=== PATIENT | female | born 1980 | race Caucasian/White ===

== ENCOUNTER 2017-07-31 22:10 | Emergency (ER) | payer BC ==
[~2017-07-31] VITALS: Ht 172.7 cm; Wt 59.4 kg
[2017-07-31] MEDS ORDERED: LEXAPRO10 MG ORAL (22:16)
--- NOTE | 2017-07-31 22:21 | Emergency Room Report ---
History of Present Illness General Chief Complaint: Vomiting Source: Patient Present Illness HPI This is a 37-year-old female with no past medical history. She did have previous appendectomy. She presents with chief complaint of nausea and vomiting. Onset this afternoon after lunch. Unable to keep anything down. No fever or chills. Zofran did help a little bit. Similar symptom 2 weeks ago she was seen in an outside hospital. No diarrhea. Labs are unremarkable then. No CT scan done. History of alcohol use over 24 hours ago. She said she only had 2 drinks. Allergies: Coded Allergies: PENICILLINS (Verified Allergy, Unknown, 07/31/17) Patient History Past Medical History: see triage record, old chart reviewed Past Surgical History: appy Pertinent Family History: none Social History: Reports: alcohol use - Social Last Menstrual Period: 3 weeks ago Now: No Immunizations: other Reviewed Nursing Documentation: PMH: Agreed; PSxH: Agreed Nursing Documentation-PMH History Of Psychiatric Problem: Yes - DEPRESSION Review of Systems Eye: Denies: eye pain, blurred vision ENT: Denies: ear pain, nose congestion, throat swelling Respiratory: Denies: cough, shortness of breath Cardiovascular: Denies: chest pain, palpitations Gastrointestinal: Reports: nausea, vomiting; Denies: abdominal pain, diarrhea Musculoskeletal: Denies: back pain, joint pain Skin: Denies: rash Neurological: Denies: headache, numbness Endocrine: Denies: increased thirst, increased urine Hematologic/Lymphatic: Denies: easy bruising All Other Systems: negative except mentioned in HPI Physical Exam Vital Signs Date Time Temp Pulse Resp B/P (MAP) Pulse Ox O2 Delivery O2 Flow Rate FiO2 07/31/17 22:11 97.5 78 16 137/85 98 Room Air 97.5 vitals normal Sp02 EP Interpretation: reviewed, normal General Appearance: well appearing, no apparent distress, alert Head: normocephalic, atraumatic Eyes: bilateral eye PERRL, bilateral eye EOMI ENT: hearing grossly normal, normal pharynx Neck: full range of motion, supple, no meningismus Respiratory: chest non-tender, lungs clear, normal breath sounds Cardiovascular #1: regular rate, rhythm, no murmur Gastrointestinal: non tender, no mass, no organomegaly, no bruit, non-distended , abnormal bowel sounds - Increased Musculoskeletal: back normal, gait/station normal, normal range of motion Neurologic: alert, oriented x3 Psychiatric: mood/affect normal Skin: warm/dry Medical Decision Making Diagnostic Impression: Primary Impression: Vomiting Qualified Codes: R11.2 - Nausea with vomiting, unspecified ER Course Patient with vomiting. No evidence of any obstruction. No evidence of acute abdomen. She felt better after IV fluid and Zofran and Reglan. Now tolerating liquids. We'll discharge home. Lab Results Impression labs unremarkable CT/MRI/US Diagnostic Results CT/MRI/US Diagnostic Results : Imaging Test Ordered: CT abdomen and pelvis Impression negative per radiologist Last Vital Signs Date Time Temp Pulse Resp B/P (MAP) Pulse Ox O2 Delivery O2 Flow Rate FiO2 07/31/17 22:11 97.5 78 16 137/85 98 Room Air 97.5 Status: improved Disposition: HOME, SELF-CARE Condition: Stable Scripts Promethazine Hcl (PROMETHAZINE HCL) 25 Mg Supp.rect 25 MG RC Q6HR, #10 SUPP Prov: SEBASTIAN ESCOBAR M.D. 08/01/17 Ondansetron Odt* (ZOFRAN ODT*) 8 Mg Tab.rapdis 4 MG ORAL Q6H PRN for Nausea & Vomiting, #10 TAB Prov: SEBASTIAN ESCOBAR M.D. 08/01/17 Patient Instructions: Nausea and Vomiting, Adult Additional Instructions: Follow-up with your DrYandy in 2-3 days. You will need a referral to see a guide domestic tour. Return if worse. SEBASTIAN ESCOBAR M.D. Jul 31, 2017 22:21
[2017-07-31 22:30] VITALS: BP 128/81
[2017-07-31 22:54] LABS: APPEARANCE,URINE CLEAR; BILIRUBIN, URINE NEGATIVE (NEGATIVE); COLOR,URINE PALE YELLOW; GLUCOSE, URINE (UA) NEGATIVE (NEGATIVE); KETONES,URINE 3+ (NEGATIVE); LEUKOCYTE ESTERASE ,URINE 1+ (NEGATIVE); NITRITE,URINE NEGATIVE (NEGATIVE); PH,URINE 8 (4.5-8.0); PROTEIN,URINE NEGATIVE (NEGATIVE); UROBILINOGEN,URINE NORMAL MG/DL (0.0-1.0)
[2017-07-31 23:00] LABS: BASOPHILS % (AUTO) 1.2 % (0.0-2.0); EOSINOPHILS % (AUTO) 0.3 % (0.0-3.0); HEMATOCRIT 44.3 % (37.0-47.0); HEMOGLOBIN 15.1 G/DL (12.0-16.0); LYMPHOCYTES % (AUTO) 12.3 % (20.0-45.0); MEAN CORPUSCULAR VOLUME 101 FL (80-99); MONOCYTES % (AUTO) 8.2 % (1.0-10.0); PLATELET COUNT 169 K/UL (150-450); RED BLOOD COUNT 4.38 M/UL (4.20-5.40); RED CELL DISTRIBUTION WIDTH 11.2 % (11.6-14.8); WHITE BLOOD COUNT 5.3 K/UL (4.8-10.8)
[2017-07-31 23:04] LABS: ANION GAP 13 mmol/L (5-15); BLOOD UREA NITROGEN 6 mg/dL (7-18); CALCIUM 7.2 MG/DL (8.5-10.1); CARBON DIOXIDE 23 MMOL/L (21-32); CHLORIDE 104 MMOL/L (98-107); CREATININE 0.8 MG/DL (0.55-1.30); POTASSIUM 3.8 MMOL/L (3.5-5.1); SODIUM 140 MMOL/L (136-145)
[2017-07-31 23:11] LABS: ALANINE AMINOTRANSFERASE 51 U/L (12-78); ALBUMIN 3.8 G/DL (3.4-5.0); ALBUMIN/GLOBULIN RATIO 1.2 (1.0-2.7); ALKALINE PHOSPHATASE 58 U/L (46-116); ASPARTATE AMINO TRANSFERASE 64 U/L (15-37); BILIRUBIN,TOTAL 0.9 MG/DL (0.2-1.0)
[2017-07-31 23:30] VITALS: BP 118/81
[2017-07-31] MEDS ORDERED: Metoclopramide 10mg/2ml Inj IVP ONE (23:45)
[2017-08-01 00:30] VITALS: BP 118/80
[2017-08-01] MEDS ORDERED: ZOFRAN ODT8 MG ORAL (01:28)
[2017-08-01] MEDS ORDERED: PROMETHAZINE HC25 MG RC (01:28)
[2017-08-01 01:30] VITALS: BP 122/78
[2017-08-01 01:45] VITALS: BP 122/78
--- NOTE | 2017-08-01 12:37 | Diagnostic Imaging Report ---
Indication: Abdominal pain for 3 days Technique: Spiral acquisitions obtained through the abdomen and pelvis. No oral contrast utilized, per emergency room physician request No IV contrast utilized, per emergency room physician request.. Multiplanar reconstructions were generated. Total dose length product 520.88 mGycm. CTDIvol(s) 11.22 mGy. Dose reduction achieved using automated exposure control Comparison: None Findings: There are bilateral breast implants Kylie at the end of the cecum likely indicate prior appendectomy. The appendix is not visualized. No evidence of diverticulosis or diverticulitis. No free or loculated intraperitoneal air or fluid is evident. No small bowel distention. The distal esophagus, stomach, duodenum are unremarkable. Lack of IV contrast limits assessment of the solid organs. The liver demonstrates multiple low-attenuation lesions. The largest is in the medial aspect of segment IVb, measures 4 x 1.6 cm. It is mostly hypoattenuating, but with a nodular border. A smaller similar lesion is seen within segment 6, measuring 1 cm diameter. A third is seen in the periphery of segment 7, measuring 12 x 6 mm. The gallbladder, bile ducts, pancreas, spleen, adrenals, kidneys are unremarkable. No retroperitoneal or mesenteric mass or adenopathy. No pelvic mass or adenopathy. The included lung bases are clear. The bones are unremarkable. Impression: Multiple liver lesions as described. These are nonspecific, could represent cysts, hemangiomas, or neoplasm Further evaluation with ultrasound, contrast CT or contrast MRI recommended for further evaluation. This finding was discussed by phone with Dr. Espinosa in the emergency room at the time of interpretation No acute abnormality Suspect prior appendectomy Bilateral breast implants The remainder of the findings are in agreement with the [employer] preliminary report The CT scanner at [facility] is accredited by the [employer] and the scans are performed using protocols designed to limit radiation exposure to as low as reasonably achievable to attain images of sufficient resolution adequate for diagnostic evaluation.
== END 2017-08-01 01:45 | disposition home or self-care (01) ==
LOC: EDBD 22:10 → EMR 22:30
DX: R11.2 Nausea with vomiting, unspecified (principal); F32.9 Major depressive disorder, single episode, unspecified; Z88.0 Allergy status to penicillin
CPT/HCPCS: 36415; 74176; 80053; 81003; 81025; 83690; 85025; 96360; 96361; 96374; 96375; 99284; J2405; J2765